=== PATIENT | male | born 1970 | race Caucasian/White ===

== ENCOUNTER 2017-03-01 08:11 | Day surgery (SDC) | payer OTHER ==
[~2017-03-01 08:11] MED LIST: Buffered Lidocaine 0.9% SYRIN* 5 ML/SYR SYRINGE INTRADERM ONE; Famotidine IV* 10 MG/ML 2 ML (20 mg) ONE
[2017-03-01] MEDS ORDERED: ceFAZolin 2 GM PREMIX (*) 2 GM/50 ML BAG IVPB ONE (08:26)
[2017-03-01] MEDS ORDERED: Midazolam* 1 MG/ML 2 ML VIAL (2 MG) ONE (08:54)
[2017-03-01] MEDS ORDERED: fentaNYL* 50 MCG/ML 2 ML VIAL (100 MCG VIAL) ONE (09:28)
[2017-03-01] MEDS ORDERED: Bupivacaine 0.25% SDV* 30 ML ONE (09:59)
[2017-03-01] MEDS ORDERED: ROPIVACAINE 5 MG/ML 30 ML BTL (0.5%) ONE (10:14)
[2017-03-01] MEDS ORDERED: Ondansetron INJ* 2 MG/ML VIAL ONE (10:54)
[2017-03-01] MEDS ORDERED: Dexamethasone IV* 4 MG/ML 1 ML (4 MG) ONE (10:54)
[2017-03-01] MEDS ORDERED: Propofol* 10 MG/ML 20 ML BTL IV PUSH ONE (10:54)
[2017-03-01] MEDS ORDERED: Lidocaine 2% PF * 5 ML VIAL ONE (10:54)
[2017-03-01] MEDS ORDERED: Ketorolac INJ* 30 MG/ML 1 ML VIAL ONE (10:54)
[2017-03-01] MEDS ORDERED: Ondansetron INJ* 2 MG/ML VIAL IV PRN (12:15)
[2017-03-01] MEDS ORDERED: Acetaminophen TAB* 325 MG PO PRN (12:15)
[2017-03-01] MEDS ORDERED: DiMENhydriNATE IV* 50 MG/ML VIAL IV PUSH PRN (12:15)
[2017-03-01] MEDS ORDERED: HYDROcodone/ACETAMIN 5-325 MG* 1 TAB PO PRN (12:15)
[2017-03-01] MEDS ORDERED: PROCHLORPERAZINE INJ 5 MG/ML 2 ML VIAL IV PRN (12:15)
[2017-03-01] MEDS ORDERED: fentaNYL* 50 MCG/ML 2 ML VIAL (100 MCG VIAL) IV PRN (12:15)
[2017-03-01 14:09] VITALS: BP 104/68
--- NOTE | 2017-03-01 18:11 | OP ---
CC: PCP, Manfred Hines MD * DATE OF OPERATION: 03/01/17 [facility] DATE OF : 68 SURGEON: Nora Montoya MD DATASTAGE ARCHITECT: GURDEEP Smiley. An personal banking assistant was needed for the entirety of the case to help with positioning, retraction, and utilized throughout all portions of the case. ANESTHESIOLOGIST: Dr. Hyman. ANESTHESIA: General interscalene block. PRE-OP DIAGNOSIS: Right shoulder full thickness retracted rotator cuff tear with bicipital tendonitis. POST-OP DIAGNOSIS: Right shoulder full thickness retracted rotator cuff tear with bicipital tendonitis. OPERATIVE PROCEDURE: 1. Right shoulder arthroscopy with glenohumeral debridement. 2. Subacromial decompression with acromioplasty. 3. Subpectoral biceps tenodesis. 4. Rotator cuff repair involving the supraspinatus and infraspinatus tendon in double-row fashion. COMPLICATIONS: None. ESTIMATED BLOOD LOSS: Minimal. IMPLANTS USED: Two Conn and Nephew 4.75 Healicoil, one Multifix, one 2.8 mm Q- Fix anchor. INDICATIONS: Arsenio Burdick is a 46-year-old gentleman with type 1 diabetes who presents with a right shoulder injury that was a full thickness rotator cuff tear. He has failed conservative management. He is 46 years old. We did discuss that he has a high hemoglobin A1c of at least 8 and that this could impair his healing, but we did talk about how typically in this age group, we would repair these. Risks and benefits of surgery were discussed at length including but not limited to bleeding, infection, damage to nerves, vessels, surrounding structures, wound nonhealing, persistent pain, need for surgery, risks of anesthesia, risks of scarring, stiffness, incomplete relief of symptoms , retear, failure, worsening arthritis, adhesive capsulitis, risk of DVT. He has elected to proceed with surgery. DESCRIPTION OF PROCEDURE: The patient was greeted in the preoperative area by the attending surgeon. The correct extremity was marked and the consent was confirmed. The patient was then brought back to the operating suite where he was placed in the supine position on the operating table. He then underwent interscalene nerve block with anesthesiologist. After the interscalene nerve block, he underwent general anesthesia with LMA intubation after which he was placed in the left lateral decubitus position. All bony prominences were padded. Care was taken to preserve his insulin pump and monitoring device. The right shoulder was prepped and draped in the usual sterile fashion with chlorhexidine, soap, scrub, and alcohol wipe and final prep of ChloraPrep. After appropriate surgical pause indicating side, site, procedure, and administration of antibiotics, the standard postero-lateral portal was made sharply with an 11 blade. The scope was introduced into the joint. The joint was examined. There was abundant synovitis and erythema. There was evidence of full thickness retracted tear of the supraspinatus tendon. The subscapularis was intact. Then anterior portal was then made in an outside-in fashion. In the biceps, there was tearing. He had a SLAP tear with bicipital tendonitis. The anterior portal was made in an outside-in fashion. The shaver was used to debride back the anterior, posterior, and inferior labrum. There was a small flap of unstable tissue that was a flap from the posterior and inferior labrum that was debrided back, but no repair was done. The glenohumeral joint had grade 1 changes with small areas of grade 2 changes in the glenoid, grade 0 to 1 changes in the humeral head. There was synovitis, but no loose bodies inferiorly in the inferior recess. The infraspinatus was intact but had evidence of partial tearing. The subscap was intact. There was abundant synovitis anteriorly in the joint. After this was complete, attention was directed to the subacromial space. Scope was positioned to the subacromial space. The lateral portal was made in outside-in fashion. Shaver was used to debride back the abundant bursa that was apparent. The undersurface of acromion was skeletonized using electro- cautery device and debrided. An acromioplasty was done to remove the anterolateral spur using a 4-0 oval dawson. All loose debris was removed. Attention was then directed to rotator cuff. There was a full thickness retracted L-shaped tear of the supraspinatus. This was unstable. The rotator cuff was debrided back to a bleeding layer. The cuff was mobilized and found to be able to restored to the footprint. The greater tuberosity was then prepared in usual fashion with electrocautery device, the rasp and the arthroscopic dawson to decorticate. The biceps was tenotomized for later open tenodesis. Two 4.75 Healicoil anchors were placed in the medial footprint of the greater tuberosity. Sutures were then passed in a horizontal mattress configuration to the tendon. These were then tied down using arthroscopic knot tying technique. Suture limbs from each of the sutures were then passed through a Multifix anchor and then secured for a lateral row fixation with excellent purchase. This helped to restore the rotator cuff and compress on the footprint. The shoulder was taken through gentle range of motion and found to be intact. Final images were obtained and the wounds were copiously irrigated. Attention was directed to the biceps. The bed was airplaned to the right side. The anterior aspect of the shoulder was prepped again using ChloraPrep and a 15- blade was used to make an incision in line with the biceps tendon accompanying inferior two-thirds of the pec. The fascia was identified and carefully incised. The remainder of dissection was done bluntly. The bicipital groove was then palpated with tension around the pec tendon. The biceps was brought through the wound and was found to have abundant synovitis and erythema. The groove was prepared in the usual fashion with electrocautery, then the red ball rasp and osteotome. The Q-Fix guide was then drilled unicortically and the Q- Fix was deployed with excellent purchase. The suture was then passed through the tendon 1 cm proximal to the musculotendinous junction and passed in a Robert Daniel-type configuration. The sutures were then used to tie down the biceps tendon. The wounds were copiously irrigated with sterile saline. The portals were closed with 3-0 nylon. The anterior wound was closed in layers with 2-0 Vicryl and 3-0 Monocryl. Sterile dressings were applied. The anterior wound was injected with 20 cc of 0.25% Marcaine plain. A Cryo/Cuff, UltraSling were applied. He was woken from anesthesia and transferred to PACU in stable condition. POSTOPERATIVE PLAN: He will be nonweightbearing. He will be in a sling for 6 weeks. He will start therapy in 4 weeks. He will discharged with pain medications and antibiotics. DVT prophylaxis is considered, but deferred due to no previous personal or family history. I will see the patient back in 10 to 14 days. [id number]/[facility] #: [id number] [facility]
== END 2017-03-01 14:18 | disposition home or self-care (01) ==
LOC: OREAST 08:11
PROVIDERS: ATTEND Orthopaedic Surgery
DX: S46.011A Strain of muscle(s) and tendon(s) of the rotator cuff of right shoulder, initial encounter (principal); M75.21 Bicipital tendinitis, right shoulder; S43.431A Superior glenoid labrum lesion of right shoulder, initial encounter; M65.811 Other synovitis and tenosynovitis, right shoulder; E10.9 Type 1 diabetes mellitus without complications; G89.18 Other acute postprocedural pain; Z79.82 Long term (current) use of aspirin; Z79.4 Long term (current) use of insulin; E78.00 Pure hypercholesterolemia, unspecified; M75.41 Impingement syndrome of right shoulder; S46.101A Unspecified injury of muscle, fascia and tendon of long head of biceps, right arm, initial encounter; X58.XXXA Exposure to other specified factors, initial encounter; Y92.9 Unspecified place or not applicable; Z96.41 Presence of insulin pump (external) (internal)
CPT/HCPCS: C1713; C1776; J0690; J1100; J1885; J2250; J2405; J2704; J2795; J3010